=== PATIENT | male | born 1950 | race Caucasian/White ===

== ENCOUNTER 2024-10-04 16:24 | Observation (INO) | payer MEDICARE, OTHER, SELFPAY ==
[2024-10-04] VITALS (11 sets, daily range): BP systolic 117–149; BP diastolic 70–85; BMI 27.5
[2024-10-04 11:17] LABS: % Basophils 0.7 % (0-2); % Eosinophils 0.7 % (0-6); % Immature Granulocytes 0.2 % (0-0.5); % Lymphocytes 38.1 % (20.5-51.1); % Monocytes 9.1 % (1.7-9.3); % Neutrophils 51.2 % (42.2-75.2); Absolute Lymphocytes 2.2 10^3/uL (1.2-3.4); Absolute Monocytes 0.5 10^3/uL (0.1-0.6); Hematocrit 43.7 % (39.0-52.0); Hemoglobin 14.9 g/dL (13.0-18.0); Mean Corp Hgb Conc. 34.1 g/dL (33.0-37.0); Mean Corpuscular Hgb 28.7 pg (27.0-31.0); Mean Corpuscular Volume 84.2 fL (80.0-94.0); Mean Platelet Volume 11.3 fL (7.4-10.4); Nucleated Red Blood Cells % 0 % (-); Platelet Count 157 10^3/uL (130-400); Red Blood Cell Count 5.19 10^6/uL (4.70-6.10); Red Cell Dist. Width 13.4 % (11.5-14.5); White Blood Cell Count 5.9 10^3/uL (4.8-10.8)
[2024-10-04 11:28] LABS: ALT (SGPT) 17 U/L (0-50); AST (SGOT) 21 U/L (17-59); Albumin 4.3 g/dl (3.5-5.0); Alkaline Phosphatase 32 U/L (38-126); Blood Urea Nitrogen 20 mg/dl (9-20); Calcium 10.8 mg/dl (8.4-10.2); Carbon Dioxide 25 mmol/L (22-30); Chloride 110 mmol/L (98-107); Estimated Creatinine Clearance 45 ml/min; Glucose 89 mg/dl (70-99); Potassium 3.8 mmol/L (3.5-5.1); Sodium 143 mmol/L (135-145); Total Bilirubin 0.7 mg/dl (0.2-1.3); Total Protein 7.4 g/dl (6.3-8.2); eGFR > 60.00
--- NOTE | 2024-10-04 11:35 | ED.GENMED ---
History of Present Illness
General
Chief Complaint: Chest Pain
Time Seen by Provider: 10/04/24 11:15
History of Present Illness
History of Present Illness:
73-year-old male with history of coronary disease status post ANJANA x 1 greater than 10 years ago presents emergency department for evaluation chest pain began last night. Pain is worse with exertion but does not completely resolve at rest. Is taken
3 nitroglycerin as well as 7 acetaminophen's since last night with some improvement in pain. Does report continued symptoms currently. States it feels comparable to his prior angina. No associated fevers, chills, or sweats. Denies dyspnea,
nausea, or vomiting. Follows with [facility] pulmonary physical therapist Dr. Grewal.
Review of Systems
Review of Systems
Allergies reviewed?: Yes
All Other Systems: ROS reviewed and negative except as documented in HPI and ROS
Phy Exam
Physical Exam
Physical Exam:
GEN: Well appearing, NAD, WDWN
HEENT: Oral mucosa moist, no scleral icterus
Cardiac: Regular rate and rhythm, no murmurs
Lung: No respiratory distress, no tachypnea, lungs clear to auscultation bilaterally
MSK: No gross deformity or injuries
Skin: Good color, no pallor or jaundice, no rashes
Neuro: AO x3, moves all extremities freely
Psych: Calm, cooperative
Scores
Heart Score for Chest Pain Patients
STEMI patient?: No
History: Highly Suspicious
ECG: Normal
Age: >/= 65 years
Risk Factors: >/= 3 Risk Factors or History of CAD
Troponin: </= Normal Limit
Heart Score for Chest Pain Patients: 6
Heart Score Risk: 20.3% MACE over next 6 weeks
Course
Orders/Labs/Results
Orders:
Orders
10/04/24 Breakfast
Cholesterol Lowering
At Your Request: Full Participation
Cholesterol Lowering: Sodium, 2 Gram
10/04/24 10:30
Electrocardiogram (*1) Urgent
Reason for Study: Chest Pain
EKG- Treatment ONCE
10/04/24 10:53
Complete Blood Count/With Diff Urgent
Comprehensive Metabolic Panel Urgent
Troponin I Urgent
10/04/24 12:38
Nitroglycerin Sublingual [Nitrostat (Sublingual)] 0.4 mg SL NOW STA
10/04/24 12:59
EKG- Treatment ONCE
10/04/24 13:43
Acetaminophen [Tylenol] 650 mg PO NOW STA
Nitroglycerin Sublingual [Nitrostat (Sublingual)] 0.4 mg SL NOW STA
CR Chest - 2 Views Urgent
Comment:
Reason For Exam: chest pain
10/04/24 13:57
Troponin I Urgent
10/04/24 14:00
Electrocardiogram (*1) Urgent
Reason for Study: Chest Pain
10/04/24 15:52
Admit/Transfer Patient As Directed
Co-Sign Provider:
Level of Care: Observation services
Assign to:: Telemetry
Physician / Group: aileen bhardwaj
Diagnosis: chest pain
Reason for Telemetry: Chest Pain syndromes
Date to Stop Telemetry: 10/06/24
Time to Stop Telemetry: 11:00
PRN Pain Medication Management As Directed
May give lesser potent ordered pain med per pt: Yes
preference::
Protocol:: Medication orders for pain may be administered in a
manner that supports deferring to patient preference
when the pt is:
- Requesting an ordered lesser potent pain medication.
Least to most potent pain medications are defined
as: acetaminophen < NSAID < tramadol < opioids
(morphine, oxycodone, hydromorphone).
- Requesting a lesser dose of the same medication IF
ORDERED.
- Requesting a less intrusive route of administration
if both routes are prescribed by the provider (PO <
IV).
10/04/24 15:53
Code Status As Directed
Resuscitation Status: Full Code
10/04/24 17:15
Electrocardiogram (*1) Q6H
Reason for Study: Chest Pain
Comment: at admission and Q3H for total of 3, to be done with each troponin
Troponin I Q3H
Comment: at admit & Q3H for 3 total including ED draws, obtain ECG with each level
10/04/24 17:15
CARDIOLOGY CONSULT Routine
Consulting Provider: Stan Hsu
Was physician already notified: Yes
Glycohemoglobin (HgbA1c) Routine
Activity As Directed
Activity Level: As Tolerated
INT (Intravenous Needle Therapy) As Directed
Comment: maintain peripheral IV access
Intake/ Output As Directed
Frequency: Per unit guidelines
Vital Signs As Directed
Frequency: q4h
Weight As Directed
Frequency: Daily
Cpap [RESP] Routine
Patient to use own unit?: No
Set Pressure (cm H2O): 5
DX Deep Vein Thrombosis Video Routine
10/04/24 18:00
Amlodipine [Norvasc] 10 mg PO QPM
Enoxaparin Sodium [Lovenox] 40 mg SC QPM
Ezetimibe [Zetia] 10 mg PO QPM
Fenofibrate [Tricor] 48 mg PO QPM
10/04/24 20:00
Pantoprazole [Protonix] 40 mg PO BID
10/04/24 20:15
Troponin I Q3H
Comment: at admit & Q3H for 3 total including ED draws, obtain ECG with each level
10/04/24 22:00
Cetirizine HCl [Zyrtec] 5 mg PO HS
10/04/24 23:15
Electrocardiogram (*1) Q6H
Reason for Study: Chest Pain
Comment: at admission and Q3H for total of 3, to be done with each troponin
10/05/24 05:15
Electrocardiogram (*1) Q6H
Reason for Study: Chest Pain
Comment: at admission and Q3H for total of 3, to be done with each troponin
10/05/24 06:00
Exercise Nuclear [Nuclear/stress Exercise (*7)] IN AM
Reason for Study: chest pain, hx LAD stent
NPO
Allow oral meds: Yes
Allow clear liquids: No
Cardiovascular Evaluation IN AM
NM Cardiac Stress IN AM
Comment:
Reason For Exam: CP
10/05/24 08:00
Aspirin Low Dose EC [Aspir Low (Enteric Coated)] 81 mg PO DAILY
Cholecalciferol (Vitamin D3) [VITAMIN D3 (cholecalciferol)] 25 mcg PO DAILY
Lactobac/Bifidobac [Visbiome] 1 cap PO DAILY
Olmesartan Medoxomil [Benicar] 40 mg PO DAILY
Rosuvastatin Calcium [Crestor] 40 mg PO DAILY
Vit C/Vit E/Lutein/Min/[place]-3 [Ocuvite Softgel] 1 cap PO DAILY
10/06/24 11:00
DC Protocol for Telemetry ONCE
Abnormal Lab Results
10/04/24
10:53
MPV 11.3 H fL
(7.4-10.4)
Chloride 110 H mmol/L
(98-107)
Calcium 10.8 H mg/dl
(8.4-10.2)
Alkaline Phosphatase 32 L U/L
(38-126)
10/04/24 10:53
10/04/24 10:53
Vital Signs
Initial and Last Documented VS:
Initial Vital Signs
Temp Pulse Resp BP Pulse Ox
97.9 F 61 16 149/71 97
10/04/24 10:39 10/04/24 10:39 10/04/24 10:39 10/04/24 10:39 10/04/24 10:39
Last Documented Vital Signs
Temp Pulse Resp BP Pulse Ox
97.5 F 59 17 144/74 96
10/04/24 17:44 10/04/24 17:44 10/04/24 17:44 10/04/24 17:44 10/04/24 17:44
MDM/Problems Addressed
MDM/Problems Addressed:
Patient had 2 troponins that were undetectable, however his story is quite concerning given that he correlates it to his prior angina that led to his PCI ultimately. Seen in consultation by cardiology who will perform further ischemic workup on an
inpatient basis
*Critical Care Note
Total Time (30-74mins, 75-104mins- exclusive of procedures): Not Applicable
ED Attending Note
-
Portions of this chart may have been created with voice recognition software.� Occasional wrong word or��sound alike� substitutions may have occurred due to the inherent limitations of voice recognition software.
Discharge Plan
Departure
Patient Disposition: Admit
Date of Disposition: 10/04/24
Time of Disposition: 15:23
Admit to: Telemetry
Presentation/result/management discussed w/ accepting MD/DO: Hospitalist
Discharge Problem:
Chest pain with high risk of acute coronary syndrome
Interventions
Interventions:
*Risk Screen - Suicide Last Done: 10/04/24 10:58
*General Assessment Last Done: 10/04/24 10:58
*Neglect/Abuse Screening Last Done: 10/04/24 10:58
*ED- Fall Risk Assessment Last Done: 10/04/24 10:58
*ED COVID-19 Vaccine History Last Done: 10/04/24 10:58
*Nursing Disposition Last Done: 10/04/24 17:37
ED- Cardiac Assessment Last Done: 10/04/24 10:58
Discharge Date and Time
Discharge Date/Time: 10/04/24 17:37
[2024-10-04 11:38] LABS: Troponin I < 0.012 ng/ml
[2024-10-04] MEDS: NITROSTAT (SUBLINGUAL) 0.4 MG SL ×2 (12:58→14:04)
--- NOTE | 2024-10-04 14:01 | CON.CAR ---
Addendum entered and electronically signed by Stan Hsu MD 10/04/24 16:36:
I saw and examined the patient.
The ST[employer] G[employer] HELPER's note was reviewed and I agree with the note.
73-year-old male with a history of coronary artery disease stenting of LAD 2012, hypertension, hyperlipidemia, GERD, hiatal hernia and WILFRIDO who presents for evaluation of chest discomfort. Prior to yesterday patient had been feeling fine exercising
regularly and has no symptoms walking on the treadmill. Yesterday evening he had some low-grade discomfort across the lower portion of his chest almost towards the upper abdomen. No change with nitroglycerin and initially no change with Tylenol
eventually symptoms subsided after about an hour and a half. This morning he said he woke up and felt fine and then about 8:00 felt the same type of discomfort. No change with activity no other precipitating factors no associated GI symptoms or
respiratory symptoms. No change with nitroglycerin or Tylenol due to persistent symptoms he went to the ER symptoms varied in intensity and then he had some just low-level residual symptoms that appear to have subsided currently but he says that he
knows that they may come back again. First troponins are negative ECG without acute ischemic changes. Exact etiology unclear. With prior history would consider the possibility of angina but also would consider noncardiac causes including GI
causes as well as musculoskeletal causes. Considering of continued episodic symptoms and underlying coronary artery disease would recommend admission for observation and would proceed as follows
- Check serial troponins
- Continue aspirin
- If he remains symptom-free and troponins remain negative then would proceed with Lexiscan study in a.m. If patient has issues with increased troponins or do ECG changes then would consider cardiac catheterization.
- Continue PPI
Original Note:
Consultation
Consultation Request
Date/Time Consultation Requested: 10/04/24 1340
Date/Time Consultation Performed: 10/04/24 1345
Requesting Provider: Malik GUEVARA
Performing Provider: Adrienne GARNICA for Dr. Hsu
Reason for Consultation: chest discomfort
Medical History
-
Chief Complaint: chest discomfort
History of Present Illness:
73 y/o male with CAD with PCI to LAD 2011, HTN, HLD, GERD/Anglin's esophagus, hiatal hernia, and WILFRIDO on CPAP who is here for chest discomfort that started last night around 10 PM. He wasn't doing anything in particular. It felt like a pressure
across his chest. Nitro and Tylenol didn't help. He laid down and felt better. He slept then this AM woke up around 730. Around 0745 he noted a dull pain again, which has been there most of the day. There is sometimes a stabbing. Pain is worse with
walking around. Nitro/Tylenol haven't helped. He is in no distress at the time of my assessment. His of 52 years is at his bedside. They celebrated their anniversary this weekend and he had wine (doesn't usually drink) and spaghetti/sauce.
Otherwise, he did 'chest day' on Tuesday for his work-out. He went on the treadmill for 35 mins that day without CP. No distress at the time of my assessment, but still with dull discomfort to chest.
Past Medical History
Past Medical History: CAD, GERD, HTN, Hypercholesterolemia and Other (sleep apnea on CPAP)
Social History
Tobacco: Non-Smoker
Alcohol: Occasional
Family History
Family History: Early CAD
Allergies / Home Medications
Allergy/AdvReac Type Severity Reaction Status Date / Time
No Known Allergies Allergy Unverified 10/04/24 10:44
Med list not yet done, but cardiac meds include:
crestor 40 mg daily
olmesartan 40 mg daily
Zetia 10 mg daily
amlodipiine 10 mg daily
aspirin 81 mg daily
PRN nitro
fenofibrate 145 mg daily
also on omeprazole 40 mg daily PO
Review of Systems
-
History Source: Patient
All other systems: Negative unless noted
Cardiac: Chest Pain
Physical Exam
Vital Signs
Temp Pulse Resp BP Pulse Ox
97.9 F 57 15 121/78 94
10/04/24 10:39 10/04/24 12:00 10/04/24 12:00 10/04/24 12:58 10/04/24 12:00
Lab Results
10/04/24 10:53
10/04/24 10:53
Troponin I < 0.012 ng/ml 10/04/24 10:53
Physical Exam
General: Well Developed, Well Nourished and No Apparent Distress
HEENT: Normocephalic and Anicteric
Respiratory: Clear and Non Labored Respirations
Cardiac: Regular Rhythm
Musculoskeletal: No Edema
Skin: Warm and Dry
Neuro: AO x 3
Psych: Calm
Impression / Plan
-
Chest discomfort:
-EKG's and trops are unremarkable- cont to trend
-other etiologies GI versus MSK. Continue PPI.
-however, with his cardiac history and the fast that his pain feels similar, will do nuclear exercise stress test in AM
CAD hx LAD stenting:
-w/u as above
-continue ASA, statin
HTN:
-stable
-continue ARB, CCB
WILFRIDO:
-continue CPAP
HLD:
-continue zetia and statin
Data Reviewed
-
EKG: Tracing Personally Visualized and interpreted (NSR with SA, IVCD 60 BPM)
Radiology: Report Reviewed by me (CXR: No convincing acute cardiopulmonary process. Cannot rule out component of underlying chronic interstitial lung disease.)
Labs: Labs Reviewed by me
Old Records: Reviewed (OV note Dr. Phelps 06/07/24)
[2024-10-04] MEDS: TYLENOL 650 MG PO (14:04)
[2024-10-04 14:35] LABS: Troponin I < 0.012 ng/ml
--- NOTE | 2024-10-04 15:34 | HPS.HSE ---
Addendum entered and electronically signed by Kings Garcia MD 10/04/24 16:39:
I saw and examined the patient.
The ELECTRON[employer] COMMODITY MANAGER or PA's note was reviewed and I agree with the note.
Comment:
73-year-old male with history of coronary disease status post ANJANA x 1 greater than 10 years ago, hypertension, hyperlipidemia, GERD, Anglin's esophagus, hiatal hernia, obstructive sleep apnea on CPAP presented to us with left-sided chest pain since
last night .� Patient took Tylenol and nitro x 1 with no relief, with eventual relief after the second nitroglycerin and aspirin.� Patient woke up this morning, and doing errands and felt the same pain.� Describes it as pressure like, left side of
the chest.� Worsened with exertion.� Upon evaluation, patient has improved chest pain.� Denies URI symptoms, nausea, vomiting, abdominal pain.� Patient afebrile, heart rate 55, respiratory rate 17, blood pressure 130/73, saturating 95% on room air.�
Physical exam grossly unremarkable for acute pathology.� Troponins x 2 negative.� X-ray with no obvious acute cardiopulmonary process.� Cannot rule out underlying chronic interstitial lung disease.� EKG with sinus bradycardia, no obvious ST changes.
�Plan�trend troponins.� Follow-up A1c, lipid panel.� Stress test in AM.� Continue aspirin.� Cardiology consult.� Continue antihypertensives.� If unremarkable findings, then consider other etiologies including pulmonary and esophageal.� Continue CPAP.
Original Note:
Family Physician
-
Family Physician: Arash Ramos
Chief Complaint
-
Left-sided chest pain
History of Present Illness
73-year-old male with history of coronary disease status post ANJANA x 1 greater than 10 years ago, hypertension, hyperlipidemia, GERD, Anglin's esophagus, hiatal hernia, obstructive sleep apnea on CPAP presented to us with left-sided chest pain since
last night . Patient took Tylenol and nitro with no relief in his symptoms. The pain was nonradiating. Patient later took aspirin with some relief in his symptoms and was able to sleep all night . He woke up with left-sided chest pain again, got
worse with exertion. Patient denies short of breath. Patient stated the pain is dull, sharp and sometimes it is a stabbing pain. Denies short of breath .denies headache, dizziness or syncope. Patient denied abdominal pain, nausea, vomiting,
diarrhea. Patient denied dysuria or hematuria.
Troponin negative. Patient was evaluated by cardiology with plan for stress test in the morning
Medical History
Past Medical History
Past Medical History: Reports Other
Additional Past Medical History:
Anglin's esophagus, colon polyps, esophageal hiatal hernia, hypertension, obstructive sleep apnea, coronary artery disease, hypertension hyperlipidemia, hyper rhythm, osteoarthritis
Past Surgical History: Reports Other
Additional Past Surgical History:
Cardiac stent, bilateral shoulder Repair, TURP, Tonsillectomy Right Hernia Repair
Social History
Tobacco: Non-smoker
Alcohol: None
Drug: None
Personal:
Living: With Family
Family History
Family History: Not pertinent
Allergies / Home Medications
Allergies reflects when Allergies were last updated in [facility].
Home Medications with original date entered in [facility]
Allergy/Medication List:
Allergies
Allergy/AdvReac Type Severity Reaction Status Date / Time
No Known Allergies Allergy Unverified 10/04/24 10:44
Home Medications
Lactobac no.2-Bifidobac no.1-S. thermo 112.5 billion cell capsule (Visbiome) 1 cap PO DAILY 10/04/24
acetaminophen 325 mg tablet (Tylenol) 650 mg PO Q6HPRN PRN mild pain 10/04/24
amlodipine 10 mg tablet (Norvasc) 10 mg PO QPM 10/04/24
apple cider vinegar 500 mg tablet 500 mg PO DAILY 10/04/24
aspirin 81 mg tablet,delayed release 81 mg PO DAILY 10/04/24
cholecalciferol (vitamin D3) 25 mcg (1,000 unit) tablet (Vitamin D3) 25 mcg PO DAILY 10/04/24
ezetimibe 10 mg tablet (Zetia) 10 mg PO QPM 10/04/24
fenofibrate nanocrystallized 145 mg tablet (Tricor) 145 mg PO QPM 10/04/24
levocetirizine 5 mg tablet (Xyzal) 5 mg PO DAILY 10/04/24
olmesartan 40 mg tablet (Benicar) 40 mg PO DAILY 10/04/24
omeprazole 40 mg capsule,delayed release 40 mg PO BID 10/04/24
rosuvastatin 40 mg tablet (Crestor) 40 mg PO DAILY 10/04/24
vitamins A,C,N-uobb-ulhyyd 2,148 mcg-113 mg-45 mg-17.4 mg tablet (PreserVision AREDS) 1 tab PO DAILY 10/04/24
Review of Systems
-
Constitutional: Reports No Symptoms
EENT: Reports No Symptoms
Respiratory: Reports No Symptoms
Cardiac: Reports Chest Pain
Abdomen/GI: Reports No Symptoms
: Reports No Symptoms
Musculoskeletal: Reports No Symptoms
Skin: Reports No Symptoms
Neurological: Reports No Symptoms
Endocrine: Reports No Symptoms
Hematologic/Lymphatic: Reports No Symptoms
Psych: Reports No Symptoms
Physical Exam
Vital Signs
Vital Signs
Temp Pulse Resp BP Pulse Ox
97.9 F 59 20 149/74 97
10/04/24 10:39 10/04/24 15:02 10/04/24 15:02 10/04/24 15:02 10/04/24 15:02
Physical Exam
General: Well Developed, Well Nourished and No Apparent Distress
HEENT: NormoCephalic, Moist mucous membranes and Atraumatic
Respiratory: Clear
Cardiac: S1/S2 and Regular Rhythm; No Murmur or Rub
GI: Soft, Non Tender, Non Distended and Normal Bowel Sounds; No Organomegaly
Rectal: Deferred by Provider
Musculoskeletal: No Clubbing, No Cyanosis and No Edema
Skin: No Rash
Neuro: AO x 3 and Nonfocal/grossly intact
Psych: Calm
Laboratory Results
-
10/04/24 10:53
10/04/24 10:53
Laboratory Results
Total Bilirubin 0.7 mg/dl (0.2-1.3) 10/04/24 10:53
AST 21 U/L (17-59) 10/04/24 10:53
ALT 17 U/L (0-50) 10/04/24 10:53
Alkaline Phosphatase 32 U/L (38-126) L 10/04/24 10:53
Troponin I < 0.012 ng/ml 10/04/24 13:57
Data Reviewed
-
Diagnostic Radiology: Report Reviewed by me
Lab Data: Labs Reviewed by me
Impression/Plan
-
# Chest pain acute coronary syndrome
- Troponin less than 0.012
- Continue to trend Trope
- Chest x-ray with no acute cardiopulmonary process
- EKG with normal sinus rhythm with sinus arrhythmia
- For stress test in a.m.
-Aspirin continued
- Cardiology consult
# Essential hypertension
- Norvasc, olmesartan continue with hold parameters
# Hyperlipidemia
- Zetia continued, Tricor continued
# GERD
- Omeprazole continue
#WILFRIDO
-CPAP continued
# DVT prophylaxis
-Lovenox subcu
CODE STATUS
-full code
-
--- NOTE | 2024-10-04 17:45 | PTCARENOTE ---
Received patient from Ed at 1745. Patient AAOx3, call christianson in reach.
[2024-10-04] MEDS: ZETIA 10 MG PO (18:38)
[2024-10-04] MEDS: TRICOR 48 MG PO (18:38)
[2024-10-04] MEDS: NORVASC 10 MG PO (18:38)
[2024-10-04] MEDS: LOVENOX 40 MG SC (18:39)
[2024-10-04] MEDS: PROTONIX 40 MG PO (21:00)
[2024-10-04] MEDS: ZYRTEC 5 MG PO (21:01)
[2024-10-04 21:06] LABS: Troponin I < 0.012 ng/ml
--- NOTE | 2024-10-04 23:51 | PTCARENOTE ---
Patient intolerant of hospital CPAP machine. Requested to be placed on O2. States he will have someone bring his home device in.
[2024-10-05 03:34] VITALS: BP 116/66
[2024-10-05 06:46] LABS: HDL Cholesterol 31 mg/dl; LDL Cholesterol, Calculated 54 mg/dl; Total Cholesterol 112 mg/dl (50-199); Triglyceride 139 mg/dl (10-149); Very Low Density Lipoprotein 27 mg/dl (0-30)
[2024-10-05 07:31] LABS: Hepatitis C Antibody Negative (Negative)
[2024-10-05 07:57] VITALS: BP 140/81
[2024-10-05 09:46] LABS: Glycohemoglobin (HgbA1c) 5.5 % (4.0-5.6)
[2024-10-05] MEDS: LEXISCAN 0.4 MG IV (11:16)
[2024-10-05] MEDS: AMINOPHYLLINE 75 MG IV (11:20)
--- NOTE | 2024-10-05 11:45 | W.PN.HOSP.TC ---
Addendum entered and electronically signed by Kings Garcia MD 10/06/24 14:26:
[id number]
Addendum entered and electronically signed by Kings Garcia MD 10/05/24 14:14:
stress test negative
dc with close f/u with pcp and cards; chest imaging and egd as per outpatient if needed for persistent symptoms
Original Note:
Today's Communication/Plan
-
stress test today
Assessment / Plan
Assessment / Plan
Physical Exam
General: Well Developed, Well Nourished and No Apparent Distress
HEENT: NormoCephalic, Moist mucous membranes and Atraumatic
Respiratory: Clear
Cardiac: S1/S2 and Regular Rhythm; No Murmur or Rub
GI: Soft, Non Tender, Non Distended and Normal Bowel Sounds; No Organomegaly
Rectal: Deferred by Provider
Musculoskeletal: No Clubbing, No Cyanosis and No Edema
Skin: No Rash
Neuro: AO x 3 and Nonfocal/grossly intact
Psych: Calm
# Chest pain acute coronary syndrome
- Troponins neg
- Chest x-ray with no acute cardiopulmonary process
- EKG with normal sinus rhythm with sinus arrhythmia
- For stress test this am
-Aspirin continued
- Cardiology consult
# Essential hypertension
- Norvasc, olmesartan continue with hold parameters
# Hyperlipidemia
- Zetia continued, Tricor continued
# GERD
- Omeprazole continue
#WILFRIDO
-CPAP continued
# DVT prophylaxis
-Lovenox subcu
CODE STATUS
-full code
-
More than 30 minutes spent in discharge including
Final examination of the patient
Summarizing hospital stay
Instructions for continuing care to all relevant caregivers
Preparation of discharge records, prescriptions, and referral forms
Total time spent (in minutes): 36
Anticipated Discharge: Today
Subjective/Interval History
-
Date of Service: October 05, 2024
No acute events overnight, stress test today
Objective Data
-
Vital Signs:
Vital Signs
Temp Pulse Resp BP Pulse Ox
98.2 F 67 14 140/81 97
10/05/24 07:57 10/05/24 07:57 10/05/24 07:57 10/05/24 07:57 10/05/24 07:57
Review of Systems
-
History Source: Patient
All other systems: Not reviewed unless documented
Data Reviewed
-
Diagnostic Radiology: Report Reviewed by me
Labs: Labs Reviewed by me
--- NOTE | 2024-10-05 11:54 | W.PN.CD ---
Today's Communication / Plan
-
Stable overnight. Currently without chest discomfort troponins negative. Plan for Lexiscan nuclear perfusion stress test today. Additional recommendations based on results
Impression / Plan
-
Chest discomfort:
-EKG's and trops are unremarkable-
-. Continue PPI.
- Lexiscan nuclear perfusion stress test today additional recommendations based on results
CAD hx LAD stenting:
-w/u as above
-continue ASA, statin
HTN:
-stable
-continue ARB, CCB
WILFRIDO:
-continue CPAP
HLD:
-continue zetia and statin
Physical Exam
Vital Signs/Labs
Vital Signs
Temp Pulse Resp BP Pulse Ox
98.2 F 67 14 140/81 97
10/05/24 07:57 10/05/24 07:57 10/05/24 07:57 10/05/24 07:57 10/05/24 07:57
10/04/24 10/05/24 10/06/24
06:59 06:59 06:59
Actual Weight 72.7 kg
Triglycerides 139 mg/dl (10-149) 10/05/24 05:25
LDL Cholesterol, Calc 54 mg/dl 10/05/24 05:25
VLDL Cholesterol, Calc 27 mg/dl (0-30) 10/05/24 05:25
HDL Cholesterol 31 mg/dl 10/05/24 05:25
LAB Results
10/04/24 10/04/24 10/04/24
10:53 13:57 17:15
Troponin I < 0.012 < 0.012 Cancelled
10/04/24
20:37
Troponin I < 0.012
Physical Exam
Constitutional: No acute distress
Cardiovascular: Rhythm & rate is regular
Respiratory: Wheeze Absent and Rhonchi Absent
GI: Soft and Non tender
Neuro/Psych: Alert
Data Reviewed
-
Date of Service: October 05, 2024
[2024-10-05 12:27] LABS: Hematocrit 43.8 % (39.0-52.0); Hemoglobin 15.1 g/dL (13.0-18.0); Mean Corp Hgb Conc. 34.5 g/dL (33.0-37.0); Mean Corpuscular Hgb 28.7 pg (27.0-31.0); Mean Corpuscular Volume 83.3 fL (80.0-94.0); Mean Platelet Volume 11.9 fL (7.4-10.4); Platelet Count 165 10^3/uL (130-400); Red Blood Cell Count 5.26 10^6/uL (4.70-6.10); Red Cell Dist. Width 13.4 % (11.5-14.5); White Blood Cell Count 5.7 10^3/uL (4.8-10.8)
[2024-10-05 12:39] LABS: ALT (SGPT) 16 U/L (0-50); AST (SGOT) 20 U/L (17-59); Alkaline Phosphatase 37 U/L (38-126); Blood Urea Nitrogen 18 mg/dl (9-20); Calcium 10.4 mg/dl (8.4-10.2); Carbon Dioxide 20 mmol/L (22-30); Chloride 113 mmol/L (98-107); Estimated Creatinine Clearance 49 ml/min; Glucose 90 mg/dl (70-99); Potassium 3.9 mmol/L (3.5-5.1); Sodium 142 mmol/L (135-145); Total Bilirubin 0.7 mg/dl (0.2-1.3); Total Protein 6.9 g/dl (6.3-8.2); eGFR > 60.00
[2024-10-05 14:00] VITALS: BP 132/76
--- NOTE | 2024-10-05 14:00 | W.PN.UPDATE ---
Update Note
Progress Note Update
Patient felt well overnight troponins negative. Lexiscan nuclear perfusion stress test without evidence of ischemia. Small inferior perfusion defect which appears fixed and most consistent with soft tissue
Would have patient ambulate and if he continues to feel well then he would be stable for discharge from a cardiology standpoint.
Would continue with current medical therapy
--- NOTE | 2024-10-05 14:14 | W.DS.TRANS ---
DC Summary - [employer]
-
Discharge Instructions:
Discharge Diagnosis/Procedures Chest pain
Diet Low Cholesterol,Low Fat
Activity As tolerated
Blood Work cbc and cmp in 3-5 days with pcp
Others Tests if needed by cardiology outpatient
Instructions:
Stand-Alone Forms:
Changes to Home Medications: No
Discharge Medications:
DC Medications w/original date entered in [employer]
Lactobac no.2-Bifidobac no.1-S. thermo 112.5 billion cell capsule (Visbiome) 1 cap PO DAILY 10/04/24
acetaminophen 325 mg tablet (Tylenol) 650 mg PO Q6HPRN PRN mild pain 10/04/24
amlodipine 10 mg tablet (Norvasc) 10 mg PO QPM 10/04/24
apple cider vinegar 500 mg tablet 500 mg PO DAILY 10/04/24
aspirin 81 mg tablet,delayed release 81 mg PO DAILY 10/04/24
cholecalciferol (vitamin D3) 25 mcg (1,000 unit) tablet (Vitamin D3) 25 mcg PO DAILY 10/04/24
ezetimibe 10 mg tablet (Zetia) 10 mg PO QPM 10/04/24
fenofibrate nanocrystallized 145 mg tablet (Tricor) 145 mg PO QPM 10/04/24
levocetirizine 5 mg tablet (Xyzal) 5 mg PO DAILY 10/04/24
olmesartan 40 mg tablet (Benicar) 40 mg PO DAILY 10/04/24
omeprazole 40 mg capsule,delayed release 40 mg PO BID 10/04/24
rosuvastatin 40 mg tablet (Crestor) 40 mg PO DAILY 10/04/24
vitamins A,C,Y-atzz-cpldey 2,148 mcg-113 mg-45 mg-17.4 mg tablet (PreserVision AREDS) 1 tab PO DAILY 10/04/24
Home Medication Changes
na
Pending Results: No
[2024-10-05] MEDS: OCUVITE SOFTGEL 1 CAP PO (14:22)
[2024-10-05] MEDS: ASPIR LOW (ENTERIC COATED) 81 MG PO (14:22)
[2024-10-05] MEDS: VITAMIN D3 (cholecalciferol) 25 MCG PO (14:22)
[2024-10-05] MEDS: VISBIOME 1 CAP PO (14:22)
[2024-10-05] MEDS: CRESTOR 40 MG PO (14:22)
[2024-10-05] MEDS: PROTONIX 40 MG PO (14:22)
[2024-10-05] MEDS: BENICAR 40 MG PO (14:22)
--- NOTE | 2024-10-05 15:12 | CM ---
Pt admitted late yesterday, cleared for discharge to home today..
Pt and live together in a condo with no entry steps. Pt is (I) amb and adls. Denies any needs for discharge.
Plan: Discharge to home with no identified needs.
Pharm: [facility] in [place]
PCP: Arash Ramos
== END 2024-10-05 14:50 | disposition home or self-care (01) ==
LOC: 3 WEST ACU 16:24
PROVIDERS: Physician Assistant; Registered Nurse; ADMITTING PHYSICIAN Internal Medicine; EMERGENCY PHYSICIAN Emergency Medicine; FAMILY PHYSICIAN Family Medicine
DX: R07.9 Chest pain, unspecified (principal); R07.89 Other chest pain; I25.10 Atherosclerotic heart disease of native coronary artery without angina pectoris; Z95.5 Presence of coronary angioplasty implant and graft; Z79.899 Other long term (current) drug therapy; I10 Essential (primary) hypertension; G47.33 Obstructive sleep apnea (adult) (pediatric); E78.00 Pure hypercholesterolemia, unspecified; Z79.82 Long term (current) use of aspirin; K21.9 Gastro-esophageal reflux disease without esophagitis
CPT/HCPCS: 71046; 78452; 80053; 80061; 83036; 84484; 85025; 85027; 86803; 93005; 93017; 99285; A9500; J2785